=== PATIENT | female | born 1995 | race Caucasian/White ===

== ENCOUNTER 2022-02-22 20:42 | Inpatient (IN) | payer SELFPAY ==
[2022-02-22 21:07] VITALS: BMI 34.4
[2022-02-22] MEDS ORDERED: Zolpidem Tartrate 5 MG TAB PO PRN (21:18)
[2022-02-22] MEDS ORDERED: Guaifenesin DM 100-10/5 ML UDCUP PO PRN (21:18)
[2022-02-22] MEDS ORDERED: HYDROcodone/Acetaminophen 5/325 mg Tablet PO PRN (21:18)
[2022-02-22] MEDS ORDERED: Calcium Carbonate 500 MG ChewTAB PO PRN (21:18)
[2022-02-22] MEDS ORDERED: Acetaminophen 325 MG TAB PO PRN (21:18)
[2022-02-22] MEDS ORDERED: Senokot S 8.6-50 MG TAB PO PRN (21:18)
[2022-02-22] MEDS ORDERED: Ondansetron PF 4 MG/2 ML Vial IVP PRN (21:18)
[2022-02-22] MEDS ORDERED: cefTRIAXone\\ROCEPHIN 1 GM in Sodium Chloride 0.9% 100 ML IVPB SCH (21:30)
[2022-02-22] MEDS ORDERED: Potassium Chloride 20 MEQ TAB PO SCH (21:30)
[2022-02-23] MEDS ORDERED: Apixaban 5 MG TAB PO SCH (07:00)
[2022-02-23] MEDS: Apixaban 5 MG TAB PO SCH ×2 (09:26→23:04)
[2022-02-23] MEDS: Cephalexin 500 MG CAP PO SCH ×2 (09:27→23:04)
[2022-02-24] MEDS: Cephalexin 500 MG CAP PO SCH (08:55)
[2022-02-24] MEDS: Apixaban 5 MG TAB PO SCH (08:55)
[2022-02-24 12:00] VITALS: BP 95/50; TEMP 97.5
[2022-03-02] MEDS ORDERED: Apixaban 5 MG TAB PO SCH (09:00)
== END 2022-02-24 12:40 | disposition home or self-care (01) | DRG 176 ==
LOC: CSHTELE 20:42 → OBSVTOIN 02-23 15:13
PROVIDERS: ADMIT Student in an Organized Health Care Education/Training Program; ATTEND Internal Medicine
DX: I26.93 Single subsegmental thrombotic pulmonary embolism without acute cor pulmonale (principal); N39.0 Urinary tract infection, site not specified; G43.909 Migraine, unspecified, not intractable, without status migrainosus; F41.9 Anxiety disorder, unspecified; F31.9 Bipolar disorder, unspecified; K76.0 Fatty (change of) liver, not elsewhere classified; E66.01 Morbid (severe) obesity due to excess calories; F12.10 Cannabis abuse, uncomplicated; B96.89 Other specified bacterial agents as the cause of diseases classified elsewhere; D50.9 Iron deficiency anemia, unspecified; Z98.51 Tubal ligation status; Z68.34 Body mass index [BMI] 34.0-34.9, adult
CPT/HCPCS: 93970; 96374; G0378; J0696; J3490

== ENCOUNTER 2022-04-11 21:04 | Observation (INO) | payer SELFPAY ==
[2022-04-11 22:05] LABS: #Eosinphils 0.1 10x3/uL (0.0-0.5); #Monocytes 0.6 10x3/uL (0.0-1.1); %Basophils 0.5 % (0.0-2.0); %Eosinophils 0.8 % (0.0-6.0); %Monocytes 6.5 % (0.0-10.0); %Neutrophils 69.9 % (40.0-75.0); Hemoglobin 11.7 g/dL (12.0-15.5); Mean Corpuscular HGB CONC 31.5 g/dL (32.0-36.0); Mean Corpuscular Hemoglobin 25.1 pg (27.0-33.0); Mean Corpuscular Volume 79.6 fl (81.6-98.3); Mean Platelet Volume 9.1 fl (7.4-10.4); Platelet Count 338 10x3/uL (150-450); RBC Distribution Width 15.3 % (11.5-14.5); Red Blood Cell (RBC) Count 4.66 10x6/uL (3.90-5.03); White Blood Cell (WBC) Count 8.6 10x3/uL (3.5-10.5)
[2022-04-11] MEDS ORDERED: Enoxaparin Sodium 80 MG/0.8 ML SYRINGE ONE (22:10)
[2022-04-11] MEDS ORDERED: Enoxaparin Sodium 40 MG/0.4 ML SYRINGE ONE (22:10)
[2022-04-11 22:15] LABS: ALT (SGPT) 22 U/L (8-55); AST (SGOT) 20 U/L (5-34); Alkaline Phosphatase 77 U/L (40-110); Anion Gap 13 mmol/L (10-20); BHCG - Serum Negative (NEGATIVE); BUN (Urea Nitrogen) 5 mg/dL (7.0-18.7); Bilirubin, Total 0.7 mg/dL (0.2-1.2); Calc. Creatinine Clearance 0 mL/min (70-130); Calcium 9.1 mg/dL (7.8-10.44); Carbon Dioxide 24 mmol/L (22-29); Chloride 105 mmol/L (98-107); Estimated GFR 100; Globulin 3.8 g/dL (2.4-3.5); Glucose 89 mg/dL (70-105); Pregs Control Background? CLEAR/WHITE (CLR/WHITE); Pregs Control Bar Appear? YES (CONTROL BAR); Protein, Total 7.8 g/dL (6.0-8.3); Sodium 138 mmol/L (136-145)
[2022-04-11 22:25] LABS: PTT 27.5 sec (22.0-33.0); Prothrombin Time 11.2 sec (9.5-12.1)
[2022-04-12] MEDS ORDERED: Ondansetron PF 4 MG/2 ML Vial IVP PRN (00:10)
[2022-04-12] MEDS ORDERED: Senokot S 8.6-50 MG TAB PO PRN (00:10)
[2022-04-12] MEDS ORDERED: Acetaminophen 325 MG TAB PO PRN (00:10)
[2022-04-12] MEDS ORDERED: Guaifenesin DM 100-10/5 ML UDCUP PO PRN (00:10)
[2022-04-12] MEDS ORDERED: HYDROcodone/Acetaminophen 5/325 mg Tablet PO PRN (00:10)
[2022-04-12] MEDS ORDERED: Calcium Carbonate 500 MG ChewTAB PO PRN (00:10)
[2022-04-12 01:34] VITALS: BMI 41.9
[2022-04-12] MEDS: Enoxaparin Sodium 120 MG/0.8 ML SYRINGE SC SCH ×2 (10:58→20:51)
[2022-04-12 17:19] VITALS: BP 116/59; TEMP 98.6
== END 2022-04-12 22:24 | disposition home or self-care (01) ==
LOC: CSHERS 21:04 → CSHTELE 04-12 01:12
PROVIDERS: ADMIT Student in an Organized Health Care Education/Training Program; ATTEND Student in an Organized Health Care Education/Training Program
DX: R07.81 Pleurodynia (principal); R06.02 Shortness of breath; I26.99 Other pulmonary embolism without acute cor pulmonale; R55 Syncope and collapse; F41.9 Anxiety disorder, unspecified; F31.9 Bipolar disorder, unspecified; K76.0 Fatty (change of) liver, not elsewhere classified; G43.909 Migraine, unspecified, not intractable, without status migrainosus; D50.9 Iron deficiency anemia, unspecified; E66.01 Morbid (severe) obesity due to excess calories; Z60.9 Problem related to social environment, unspecified; Z79.01 Long term (current) use of anticoagulants; Z20.822 Contact with and (suspected) exposure to COVID-19; Z98.51 Tubal ligation status
CPT/HCPCS: 36415; 80053; 84484; 84703; 85025; 85610; 85730; 93005; 93306; 96372; G0378; J1650; U0003; U0005

== ENCOUNTER 2022-05-11 16:46 | Emergency (ER) | payer SELFPAY ==
[2022-05-11 17:13] LABS: #Eosinphils 0.1 10x3/uL (0.0-0.5); #Monocytes 0.5 10x3/uL (0.0-1.1); #Neutrophils 4.6 10x3/uL (1.5-8.4); %Basophils 0.4 % (0.0-2.0); %Eosinophils 0.8 % (0.0-6.0); %Lymphocytes 27.1 % (18.0-47.0); %Monocytes 6.3 % (0.0-10.0); Mean Corpuscular HGB CONC 31.8 g/dL (32.0-36.0); Mean Corpuscular Volume 78.6 fl (81.6-98.3); Mean Platelet Volume 9.3 fl (7.4-10.4); Platelet Count 371 10x3/uL (150-450); RBC Distribution Width 15.3 % (11.5-14.5); White Blood Cell (WBC) Count 7.1 10x3/uL (3.5-10.5)
[2022-05-11 17:23] LABS: BHCG - Serum Negative (NEGATIVE); Pregs Control Background? CLEAR/WHITE (CLR/WHITE); Pregs Control Bar Appear? YES (CONTROL BAR)
[2022-05-11 17:31] LABS: ALT (SGPT) 15 U/L (8-55); AST (SGOT) 19 U/L (5-34); Albumin 3.8 g/dL (3.5-5.0); Alkaline Phosphatase 76 U/L (40-110); Anion Gap 13 mmol/L (10-20); BUN (Urea Nitrogen) 7 mg/dL (7.0-18.7); Bilirubin, Total 0.7 mg/dL (0.2-1.2); Calc. Creatinine Clearance 0 mL/min (70-130); Calcium 8.6 mg/dL (7.8-10.44); Carbon Dioxide 23 mmol/L (22-29); Chloride 106 mmol/L (98-107); Estimated GFR 108; Globulin 3.8 g/dL (2.4-3.5); Glucose 95 mg/dL (70-105); Lipase 17 U/L (8-78); Potassium 3.9 mmol/L (3.5-5.1); Protein, Total 7.6 g/dL (6.0-8.3); Sodium 138 mmol/L (136-145)
[2022-05-11 19:31] LABS: PTT 28.4 sec (22.0-33.0); Prothrombin Time 10.9 sec (9.5-12.1)
[2022-05-11 21:02] LABS: Bilirubin Neg (Negative); Blood, Urine 250 (Negative); Clarity Cloudy (Clear); Glucose, Urine (Dipstick) Normal (Negative); Ketone, Urine 5 mg/dL (Negative); Leukocyte 25 (Negative); Nitrite Positive (Negative); Protein, Urine (Dipstick) 30 mg/dl (Neg-Trace); Urobilinogen Normal mg/dL (Less than 2)
[2022-05-11 21:25] LABS: Bacteria/HPF 2+ HPF (None Seen); RBC/HPF 21-50 HPF (0-3); Squamous Epithelial 0-3 HPF (0-3); WBC/HPF 0-3 HPF (0-3)
== END 2022-05-11 21:01 | disposition home or self-care (01) ==
LOC: CSHERS 16:46
DX: R04.2 Hemoptysis (principal); R06.02 Shortness of breath; I26.99 Other pulmonary embolism without acute cor pulmonale; Z79.01 Long term (current) use of anticoagulants; Z87.891 Personal history of nicotine dependence
CPT/HCPCS: 71045; 80053; 81003; 81015; 83690; 83880; 84703; 85025; 85610; 85730; 93005